=== PATIENT | female | born 1950 | race African-American/Black ===

== ENCOUNTER 2021-06-17 15:25 | Outpatient (CLI) | payer MEDICARE, MEDICAID | END 2021-06-17 15:26 | disposition home or self-care (01) | LOC: CSHMAMMO 15:25 | PROVIDERS: ATTEND Family Medicine | DX: Z12.31 Encounter for screening mammogram for malignant neoplasm of breast (principal); N64.89 Other specified disorders of breast | CPT/HCPCS: 77063; 77067 ==

== ENCOUNTER 2021-07-11 09:25 | Outpatient (CLI) | payer MEDICARE | END 2021-07-11 09:26 | disposition home or self-care (01) | LOC: CSHMAMMO 09:25 | PROVIDERS: ATTEND Family Medicine | DX: R92.8 Other abnormal and inconclusive findings on diagnostic imaging of breast (principal) | CPT/HCPCS: 76642; 77065; G0279 ==